=== PATIENT | female | born 1975 | race Caucasian/White ===

== ENCOUNTER 2024-02-23 05:38 | Day surgery (SDC) | payer BC ==
[2024-02-21 15:42] LABS: BILIRUBIN,URINE NEGATIVE (Neg); CLARITY,URINE CLEAR (Clear); COLOR,URINE YELLOW (Yellow); GLUCOSE, URINE NEGATIVE (Neg); KETONES,URINE NEGATIVE (Neg); LEUKOCYTE ESTERASE ,URINE NEGATIVE (Neg); NITRITES, URINE NEGATIVE (Neg); OCCULT BLOOD,URINE TRACE-INTACT (Neg); PROTEIN,URINE NEGATIVE (Neg); UROBILINOGEN,URINE 0.2 E.U/dL (0.2-1.0)
[2024-02-21 15:44] LABS: UA COLLECTION TYPE CLN CATCH MIDSTREAM
[2024-02-21 15:48] LABS: BASOPHILS # (AUTO) 0.1 X10'3 (0-0.2); BASOPHILS % (AUTO) 0.7 % (0-1); EOSINOPHILS # (AUTO) 0.2 X10'3 (0-0.9); LYMPHOCYTES # (AUTO) 1.7 X10'3 (1.1-4.8); LYMPHOCYTES % (AUTO) 18.8 % (21-51); MEAN CORPUSCULAR HEMOGLOBIN 26.9 PG (27.0-31.0); MEAN CORPUSCULAR HGB CONC 32.2 g/dL (33.0-36.5); MEAN CORPUSCULAR VOLUME 83.5 FL (78-98); MEAN PLATELET VOLUME 7.4 FL (7.4-10.4); MONOCYTES # (AUTO) 0.7 X10'3 (0-0.9); MONOCYTES % (AUTO) 7.9 % (2-12); NEUTROPHILS # (AUTO) 6.5 X10'3 (1.8-7.7); NEUTROPHILS % (AUTO) 70.6 % (42-75); PRE OP HEMOGLOBIN 12.9 g/dL (12.0-16.0); PRE OP PLATELET COUNT 359 X10'3 (140-440); PRE OP WHITE BLOOD COUNT 9.2 10'3 (4.8-10.8); RED BLOOD COUNT 4.79 X10'6 (4.20-5.60); RED CELL DISTRIBUTION WIDTH 15.2 % (11.5-14.5)
[2024-02-21 15:50] LABS: BACTERIA,URINE NONE SEEN /HPF (Neg); RBC,URINE 0-2 /HPF (0-2); SQUAMOUS EPITHELIAL CELL,UR FEW /LPF (FEW); WBC,URINE NONE SEEN /HPF (0-4)
[2024-02-21 15:59] LABS: ALBUMIN 3.7 G/DL (3.4-5.0); ALBUMIN/GLOBULIN RATIO 0.9 (1.1-1.5); ALKALINE PHOSPHATASE 80 IU/L (46-116); BLOOD UREA NITROGEN 17 MG/DL (7-18); CALCIUM 9.4 MG/DL (8.5-10.1); CHLORIDE 101 MMOL/L (99-107); CREATININE 0.85 MG/DL (0.40-0.90); PRE OP ALT 22 U/L (30-65); PRE OP ANION GAP 5 (8-16); PRE OP AST 16 U/L (10-37); PRE OP BILIRUB, TOTAL 0.2 MG/DL (0.0-1.0); PRE OP GLUCOSE 89 MG/DL (70-104); PRE OP POTASSIUM 3.9 MMOL/L (3.4-5.1); PRE OP SODIUM 135 MMOL/L (135-145); TOTAL CARBON DIOXIDE 29.4 MMOL/L (24-32); TOTAL PROTEIN 7.6 G/DL (6.4-8.2); eGFR 71 ML/MIN
[2024-02-21 16:03] LABS: HCG SERUM QL NEGATIVE
[~2024-02-23] VITALS: Ht 152.4 cm; Wt 114.8 kg
[2024-02-23] MEDS: ceFOXitin 2GM-NS 100mL ADDvant 100 ML IV ONE (05:30)
[~2024-02-23 05:38] MED LIST: BUPR-564 PO; CHOL1CAP16 PO; ESCI10TA PO; HYDR-3686 PO; LORA-269 PO; MEDR10TA10 PO
[2024-02-23 06:00] VITALS: BP 114/70; PULSE 79; RESP 16; TEMP 96.4; O2SAT 96
[2024-02-23] MEDS: famotidine 20mg tablet PO ONE (06:31)
[2024-02-23] MEDS: ringers solution, lacted 1,000 ML IV SCH (06:33)
[2024-02-23] MEDS ORDERED: sevoflurane 250ml liquid IH ONE (07:16)
[2024-02-23] MEDS ORDERED: HYDROmorphone/PF 0.2 MG/ML SYRINGE IV PRN ×2 (07:25)
[2024-02-23] MEDS ORDERED: ringers solution, lacted 1,000 ML IV SCH (07:25)
[2024-02-23] MEDS ORDERED: morphine 4 MG/ML inj SYRINge IV PRN (07:25)
[2024-02-23] MEDS ORDERED: hydrALAZINE 20mg/ml inj. IV PRN (07:25)
[2024-02-23] MEDS ORDERED: labetalol 20mg/4ml (5mg/ml) syringe IV PRN (07:25)
[2024-02-23] MEDS ORDERED: ondansetron/PF 4mg/2ml inj IV PRN (07:25)
[2024-02-23] MEDS ORDERED: proCHLORperazine 10 MG/2 ml inj IV PRN (07:25)
[2024-02-23] MEDS ORDERED: fentaNYL/PF 50MCG/1 ML 2ML syringe ONE (07:26)
[2024-02-23] MEDS ORDERED: midazolam 1 mg/ML 2ml injection ONE (07:33)
[2024-02-23] MEDS ORDERED: LIDOcaine 2% (20mg/ml) 5ml vial ONE (07:34)
[2024-02-23] MEDS ORDERED: ondansetron/PF 4mg/2ml inj ONE (07:34)
[2024-02-23] MEDS ORDERED: propofol inj 20 ML IV ONE (07:34)
[2024-02-23] MEDS ORDERED: dexamethasone sod phosphate 4mg/ml inj. ONE (07:34)
[2024-02-23 08:17] VITALS: BP 125/72; PULSE 72; RESP 16; O2SAT 98
[2024-02-23 08:20] VITALS: BP 121/70; PULSE 65; RESP 12; O2SAT 99
[2024-02-23] MEDS: morphine 2 MG/ML inj. syringe IV PRN (08:28)
[2024-02-23 08:30] VITALS: BP 128/63; PULSE 58; RESP 13; O2SAT 96
[2024-02-23 08:40] VITALS: BP 120/61; PULSE 61; RESP 14; O2SAT 96
[2024-02-23 08:50] VITALS: BP 130/72; PULSE 68; RESP 14; O2SAT 98
== END 2024-02-23 08:57 | disposition home or self-care (01) ==
LOC: PAS 05:38
PROVIDERS: ATTEND Obstetrics & Gynecology Obstetrics
DX: N92.0 Excessive and frequent menstruation with regular cycle (principal); N85.8 Other specified noninflammatory disorders of uterus; E66.9 Obesity, unspecified; F41.9 Anxiety disorder, unspecified; F32.A Depression, unspecified; Z87.891 Personal history of nicotine dependence; Z79.899 Other long term (current) drug therapy; Z98.891 History of uterine scar from previous surgery; Z98.890 Other specified postprocedural states; Z68.42 Body mass index [BMI] 45.0-49.9, adult; Z88.2 Allergy status to sulfonamides
CPT/HCPCS: 36415; 58558; 71046; 80053; 81001; 82948; 84703; 85025; 86885; 86900; 86901; J0694; J1100; J2250; J2270; J2405; J2704; J3010; J3490; J7030; J7120; Z7506; Z7508; Z7512; A4355; A4618; A6258; A7000